=== PATIENT | male | born 1965 | race Caucasian/White ===

== ENCOUNTER → 2019-03-23 14:51 | Outpatient (CLI) | payer SELFPAY ==
--- NOTE | 2019-03-23 15:01 | CT_ITS ---
STUDY: CT CHEST/THORAX WITHOUT CONTRAST REASON FOR EXAM: Male, 54 years old. Hyperlipidemia. RADIATION DOSAGE (If Supplied By Facility): CTDIvol = ( 12.19 ) mGy, DLP = ( 170.66 ) mGycm TECHNIQUE: Transaxial imaging was performed from the level of the damon to the costophrenic sulci without the administration of intravenous contrast material. Individualized dose optimization techniques were used for this CT. COMPARISON: None. FINDINGS: The lungs are normal. There is no demonstrated pleural abnormality. Normal heart and pericardium. There are calcifications of the coronary arteries. Normal mediastinum. Normal hilar regions. Normal unenhanced pulmonary arteries. Normal aorta arch and descending thoracic aorta. Normal osseous structures. There is no demonstrated abnormality of the visualized upper abdomen. CT/Limited Chest CT w/CCTA IMPRESSION: Coronary artery calcifications noted. No visualized pulmonary infiltrate, mass, or pleural effusion Electronically Signed: Emre Madison MD at 10:35 EDT , Service support ,
[2019-03-23 15:29] VITALS: BP 133/84; PULSE 52; RESP 16; O2SAT 100; BMI 23.6
--- NOTE | 2019-03-26 09:36 | CA.SCORE ---
Calcium Scoring Date of Study:: 03/26/19 Coronary Calcium Scoring: High-resolution Computed Tomographic imaging of the chest was performed on [03/23/2019 ], with particular attention paid to the coronary arteries. Images from the examination were analyzed for the presence and extent of coronary artery calcification , using coronary calcium quantification software. The patient tolerated the procedure well and there were no complications. The results of the coronary calcification analysis are provided below. - Findings Left Main (LM): 0 Left Anterior Descending (LAD): 17.7 Left Circumflex (LCX): 0 Right Coronary Artery (RCA): 5.36 Total Agatston Score: 23.06 Percentile Rankin - Between 50 and 75%. - Conclusion Calcium Scoring Interpretation: Calcium Score Interpretation 0 No identifiable atherosclerotic plaque. Very low cardiovascular disease risk. <5% chance of presence coronary artery disease A Negative Examination 1-10 Minimal Plaque burden. Significant coronary artery disease very unlikely. 11-100 Mild plaque burden. Likely mild or minimal coronary atherosclerosis. 101-400 Moderate plaque burden Moderate non-obstructive coronary artery disease highly likely. Over 400 Extensive plaque burden. High likelihood of at least one significant coronary stenosis (>50% diameter) The total calcium score (23.0) is between the 50th and 75th percentile for men between the ages of 50 and 54. (Exact percentile calculated to be 52%; this means 51% of the population has a lower calcium score and 48% of the population has a higher calcium score than this patient.) A full evaluation of cardiac risk should include an assessment of all conventional risk factors, and the scores and percentile rankings reported herein should be evaluated in this context.
== END ==
PROVIDERS: Family Provider Internal Medicine; PCP Internal Medicine; Referring Provider Internal Medicine; Visit Provider Internal Medicine
DX: E78.5 Hyperlipidemia, unspecified (principal)
CPT/HCPCS: 75571; 76380